=== PATIENT | male | born 1960 | race Caucasian/White ===

== ENCOUNTER → 2017-08-16 | Outpatient (CLI) | payer OTHER | LOC: BMCIMAGING 14:06 | PROVIDERS: ATTEND Podiatrist Foot & Ankle Surgery | DX: M79.671 Pain in right foot (principal) ==

== ENCOUNTER 2018-11-25 14:01 | Emergency (ER) | payer OTHER ==
[2018-11-25] MEDS ORDERED: ONDANSETRON 4 MG/2 ML VIAL IVP ONE (15:05)
[2018-11-25] MEDS ORDERED: NS 1,000 ML IV ONE (15:05)
[2018-11-25] MEDS ORDERED: HYDROmorphONE/DILAUDID 2 MG/ML INJ IVP ONE (15:05)
--- NOTE | 2018-11-25 15:09 | EDPHY ---
H & P Stated Complaint: Syncope/lac on left foot Time Seen by Provider: 11/25/18 14:58 HPI/ROS: CHIEF COMPLAINT: Syncope, toe laceration HISTORY OF PRESENT ILLNESS: The patient is a 58-year-old man with history of hypertension only who was switched from lisinopril to amlodipine yesterday. He took the 1st dose of amlodipine last night before going to bed. He woke up around 530 this morning and when he rolled over suddenly felt lightheaded. He denies vertigo or dizziness sensation. He got up to go to the bathroom and was able to do so without difficulty but then when he stood up again to go to the bed he felt lightheaded and woke up on the floor. He denies chest pain or shortness of breath. He denies abdominal pain. He has mild nausea but no vomiting. No diarrhea. No recent fevers or illness. He has some pain to the left taoist region of his skull. No obvious swelling, abrasion or laceration. No neck pain. Also a laceration to the palmar aspect of his left 5th toe. He first went to his primary care doctor this morning who recommended to go to the urgent care. When he went to the urgent care they recommended he come here to the emergency department. He does state that his headache has been slightly worsening. Severity: moderate Modifying factors: None REVIEW OF SYSTEMS: Constitutional: denies: chills, fever, recent illness, recent injury EENTM: denies: blurred vision, double vision, nose congestion Respiratory: denies: cough, shortness of breath Cardiac: denies: chest pain, irregular heart rate, palpitations Gastrointestinal/Abdominal: denies: abdominal pain, diarrhea, nausea, vomiting, blood streaked stools Genitourinary: denies: dysuria, frequency, hematuria, pain Musculoskeletal: denies: joint pain, muscle pain Skin: denies: lesions, rash, jaundice, bruising Neurological: See HPI denies: numbness, paresthesia, tingling, dizziness, weakness Hematologic/Lymphatic: denies: blood clots, easy bleeding, easy bruising Immunologic/allergic: denies: HIV/AIDS, transplant 10 systems reviewed and negative except as noted EXAM: GENERAL: Well-appearing, well-nourished and in no acute distress. HEAD: Atraumatic, normocephalic. EYES: Pupils equal round and reactive to light, extraocular movements intact, sclera anicteric, conjunctiva are normal. ENT: TMs normal, nares patent, oropharynx clear without exudates. Moist mucous membranes. NECK: Normal range of motion, supple without lymphadenopathy or JVD. LUNGS: Breath sounds clear to auscultation bilaterally and equal. No wheezes rales or rhonchi. HEART: Regular rate and rhythm without murmurs, rubs or gallops. ABDOMEN: Soft, nontender, normoactive bowel sounds. No guarding, no rebound. No masses appreciated. BACK: No CVA tenderness, no spinal tenderness, step-offs or deformities EXTREMITIES: 2 cm laceration to the palmar aspect of his left 5th toe over the middle phalanx. No visible bony involvement. No visible joint involvement. No nail or nail bed involvement. Normal range of motion, no pitting or edema. No clubbing or cyanosis. NEUROLOGICAL: Cranial nerves II through XII grossly intact. Normal speech, normal gait. 5/5 strength, normal movement in all extremities, normal sensation , normal reflexes PSYCH: Normal mood, normal affect. SKIN: See above, Warm, dry, normal turgor, no visible rashes or lesions. Source: Patient Exam Limitations: No limitations - Personal History Current Tetanus/Diphtheria Vaccine: Yes - Medical/Surgical History Hx Asthma: No Hx Chronic Respiratory Disease: No Hx Diabetes: No Hx Cardiac Disease: No Hx Renal Disease: No Hx Cirrhosis: No Hx Alcoholism: No Other PMH: Htn, hypercholesterol - Family History Significant Family History: No pertinent family hx - Social History Smoking Status: Never smoked Alcohol Use: None Constitutional: Initial Vital Signs Temperature (C) 37.1 C 11/25/18 14:13 Heart Rate 69 11/25/18 14:13 Respiratory Rate 18 11/25/18 14:13 Blood Pressure 128/91 H 11/25/18 14:13 O2 Sat (%) 95 11/25/18 14:13 O2 Delivery Mode Room Air O2 (L/minute) 2 Allergies/Adverse Reactions: No Known Allergies Allergy (Unverified 11/25/18 14:16) Home Medications: Medication Instructions Recorded Amlodipine Besylate 11/25/18 Atorvastatin Calcium 11/25/18 Concerta 11/25/18 Medical Decision Making - Diagnostics EKG Interpretation: An EKG obtained and was read and documented in trace view. Please see trace view for full reading and report. Sinus rhythm, no acute ischemic changes Imaging Results: Imaging Impressions Head CT 11/25/18 15:06 Impression: 1. No significant intracranial abnormality seen. 2. Nonspecific maxillary, ethmoid, and frontal sinus disease. If symptoms worsen, additional imaging may be necessary. Findings discussed with Leonard Ortega M.D. at 15:58 hour, 11/25/2018. Toe X-Ray 11/25/18 16:04 Impression: Negative left fifth toe radiographs. Imaging: Discussed imaging studies w/ call center dispatcher Radiologist Procedures: Procedure: Laceration repair. Verbal consent was obtained from the patient. The 2 cm the toe laceration was anesthetized with 1% lidocaine locally infiltrated. The wound was irrigated copiously according to protocol, draped and explored to its base. It was approximately 1/2 cm deep. There were no deep structures involved. No tendon, nerve, or vascular injury was identified when explored through full range of motion. No foreign body was identified. The wound was repaired with 4.0 Prolene, 5 sutures, interrupted. The wound repair was moderately complex because of location in a crease . The procedure was performed by myself. A dressing was then placed with sterile gauze and bacitracin. ED Course/Re-evaluation: Patient tolerated laceration repair. We discussed suture care including removal in 10 days which is slightly prolonged. Discussed concussions and indications for returning. Patient feels comfortable with this. Differential Diagnosis: Partial list of the Differential diagnosis considered include but were not limited to; the laceration, fracture, concussion and although unlikely based on the history and physical exam, I also considered dislocation, cervical injury , intracranial injury. I discussed these differential diagnoses and the plan with the patient as well as the usual and expected course. The patient understands that the diagnosis is provisional and that in medicine we are not always correct and that further workup is often warranted. Usual and customary warnings were given. All of the patient's questions were answered. The patient was instructed to return to the emergency department should the symptoms at all worsen or return, otherwise to followup with the physician as we discussed. - Data Points Laboratory Results: Laboratory Results 11/25/18 15:05 11/25/18 15:05 11/25/18 11/25/18 15:05 15:05 WBC 8.18 10^3/uL 10^3/uL (3.80-9.50) RBC 5.24 10^6/uL 10^6/uL (4.40-6.38) Hgb 17.1 g/dL g/dL (13.7-17.5) Hct 47.1 % % (40.0-51.0) MCV 89.9 fL fL (81.5-99.8) MCH 32.6 pg pg (27.9-34.1) MCHC 36.3 g/dL g/dL (32.4-36.7) RDW 12.3 % % (11.5-15.2) Plt Count 221 10^3/uL 10^3/uL (150-400) MPV 9.8 fL fL (8.7-11.7) Neut % (Auto) 63.2 % % (39.3-74.2) Lymph % (Auto) 26.3 % % (15.0-45.0) [place] % (Auto) 8.6 % % (4.5-13.0) Eos % (Auto) 1.3 % % (0.6-7.6) Baso % (Auto) 0.4 % % (0.3-1.7) Nucleat RBC Rel Count 0.0 % % (0.0-0.2) Absolute Neuts (auto) 5.17 10^3/uL 10^3/uL (1.70-6.50) Absolute Lymphs (auto) 2.15 10^3/uL 10^3/uL (1.00-3.00) Absolute Monos (auto) 0.70 10^3/uL 10^3/uL (0.30-0.80) Absolute Eos (auto) 0.11 10^3/uL 10^3/uL (0.03-0.40) Absolute Basos (auto) 0.03 10^3/uL 10^3/uL (0.02-0.10) Absolute Nucleated RBC 0.00 10^3/uL 10^3/uL (0-0.01) Immature Gran % 0.2 % % (0.0-1.1) Immature Gran # 0.02 10^3/uL 10^3/uL (0.00-0.10) Sodium 139 mEq/L mEq/L (135-145) Potassium 4.4 mEq/L mEq/L (3.5-5.2) Chloride 106 mEq/L mEq/L (97-110) Carbon Dioxide 25 mEq/l mEq/l (22-31) Anion Gap 8 mEq/L mEq/L (6-14) BUN 21 mg/dL mg/dL (7-23) Creatinine 1.0 mg/dL mg/dL (0.7-1.3) Estimated GFR > 60 Glucose 91 mg/dL mg/dL (70-100) Calcium 9.9 mg/dL mg/dL (8.5-10.4) Medications Given: Discontinued Medications Hydromorphone HCl (Dilaudid) 1 mg IVP EDNOW ONE Stop: 11/25/18 15:06 Last Admin: 11/25/18 15:22 Dose: 1 mg Sodium Chloride (Ns) 1,000 mls @ 0 mls/hr IV ONCE ONE; Wide Open PRN Reason: Protocol Stop: 11/25/18 15:06 Last Admin: 11/25/18 15:22 Dose: 1,000 mls Ondansetron HCl (Zofran) 4 mg IVP EDNOW ONE Stop: 11/25/18 15:06 Last Admin: 11/25/18 15:23 Dose: 4 mg Departure - Departure Disposition: Home, Routine, Self-Care Clinical Impression: Laceration of fifth toe, left Qualifiers: Encounter type: initial encounter Qualified Code(s): S91.115A - Laceration without foreign body of left lesser toe(s) without damage to nail, initial encounter Concussion Qualifiers: Encounter type: initial encounter Loss of consciousness presence/duration: with LOC of 30 min or less Qualified Code(s): S06.0X1A - Concussion with loss of consciousness of 30 minutes or less, initial encounter Condition: Fair Instructions: Care For Your Stitches (ED), Concussion (ED) Additional Instructions: Have your stitches removed in 10 days were a stiff-soled shoe to prevent bending. Return for signs of infection as we discussed. Referrals: Monica Flores MD [Primary Care Provider] - As per Instructions
[2018-11-25 15:18] LABS: PLATELET COUNT 221 10^3/uL (150-400)
--- NOTE | 2018-11-25 16:38 | CPEKG ---
Test Reason : OPEN Blood Pressure : / mmHG Vent. Rate : 054 BPM Atrial Rate : 053 BPM P-R Int : 160 ms QRS Dur : 098 ms QT Int : 414 ms P-R-T Axes : 050 000 016 degrees QTc Int : 393 ms Sinus rhythm Abnormal R-wave progression, early transition Confirmed by Leonard Ortega ([id number]) on 11/25/2018 4:38:04 PM Referred By: Leonard Ortega Confirmed By:Leonard Ortega
[2018-11-25 17:34] VITALS: BP 140/69
== END 2018-11-25 17:35 | disposition home or self-care (01) ==
PROC: 0HQNXZZ Repair Left Foot Skin, External Approach (ICD-10-PCS; principal; 2018-11-25)
DX: S06.0X1A Concussion with loss of consciousness of 30 minutes or less, initial encounter (principal); S91.115A Laceration without foreign body of left lesser toe(s) without damage to nail, initial encounter; R55 Syncope and collapse; I10 Essential (primary) hypertension; W19.XXXA Unspecified fall, initial encounter; Y92.002 Bathroom of unspecified non-institutional (private) residence as the place of occurrence of the external cause; Y99.9 Unspecified external cause status; Y93.9 Activity, unspecified
CPT/HCPCS: 96374; J1170; J2405; L4386